=== PATIENT | female | born 1990 | race Hispanic/Latino ===

== ENCOUNTER 2021-09-07 07:40 | Emergency (ER) | payer BC, OTHER ==
[~2021-09-07] VITALS: Ht 160 cm; Wt 90.3 kg
[2021-09-07] MEDS ORDERED: DICYCLOMINE HCL 10 MG/5 ML ML PO SCH (08:00)
[2021-09-07] MEDS ORDERED: FAMOTIDINE 20MG VIAL IV SCH (08:00)
[2021-09-07] MEDS ORDERED: 0.9%NACL 1000ML 1,000 ML IV SCH (08:00)
[2021-09-07] MEDS ORDERED: ONDANSETRON 4MG INJ IVP SCH (08:00)
[2021-09-07] MEDS ORDERED: MAG/ALUM/SIMETH 30 ML UDCUP PO SCH (08:00)
[2021-09-07] MEDS ORDERED: LIDOCAINE HCL 2% VISCOUS 15 ML UDCUP PO SCH (08:00)
[2021-09-07] MEDS ORDERED: ONDANSETRON 4MG INJ ONE (08:04)
[2021-09-07] MEDS ORDERED: LIDOCAINE HCL 2% VISCOUS 15 ML UDCUP ONE (08:04)
[2021-09-07] MEDS ORDERED: MAG/ALUM/SIMETH 30 ML UDCUP ONE (08:04)
[2021-09-07] MEDS ORDERED: DICYCLOMINE HCL 10 MG/5 ML ML PO ONE (08:04)
[2021-09-07] MEDS ORDERED: FAMOTIDINE 20MG VIAL IV ONE (08:05)
[2021-09-07 08:17] LABS: BASOPHILS % (AUTO) 0.4 % (0.0-5.0); EOSINOPHILS % (AUTO) 0.3 % (0.0-8.0); HEMATOCRIT 42.4 % (36-48); LYMPHOCYTES % (AUTO) 21.3 % (21.0-51.0); MEAN CORPUSCULAR HEMOGLOBIN 28.3 pg (27.0-33.0); MEAN CORPUSCULAR HGB CONC 31.4 g/dL (32.0-36.0); MEAN CORPUSCULAR VOLUME 90.2 fL (79-99); MONOCYTES % (AUTO) 3.6 % (3.0-13.0); NEUTROPHILS % (AUTO) 73.9 % (40.0-77.0); PLATELET COUNT (AUTO) 401 K/uL (130-400); RED CELL DISTRIBUTION WIDTH 13.6 % (11.0-15.5); WHITE BLOOD COUNT (AUTO) 14.9 K/uL (4.8-10.8)
[2021-09-07 08:28] LABS: APPEARANCE,URINE CLEAR (CLEAR); BILIRUBIN,URINE NEGATIVE (NEGATIVE); COLOR,URINE YELLOW (YELLOW); GLUCOSE, URINE (UA) NEGATIVE (NEGATIVE); KETONES,URINE NEGATIVE (NEGATIVE); LEUKOCYTE ESTERASE ,URINE MODERATE (NEGATIVE); NITRATE,URINE NEGATIVE (NEGATIVE); OCCULT BLOOD,URINE NEGATIVE (NEGATIVE); PROTEIN,URINE NEGATIVE (NEGATIVE); UROBILINOGEN,URINE 0.2 mg/dL (0.2-1.0)
[2021-09-07 08:31] LABS: CREATININE 0.8 mg/dL (0.5-1.5); POTASSIUM 3.7 mmol/L (3.5-5.1)
[2021-09-07 08:35] LABS: ALBUMIN 3.6 g/dL (3.5-5.0); BILIRUBIN,TOTAL 0.4 mg/dL (0.2-1.0); TOTAL PROTEIN, SERUM 8.3 g/dL (6.0-8.3)
[2021-09-07 08:40] LABS: HCG,QUAL RESULT NEGATIVE (NEGATIVE)
[2021-09-07 09:00] LABS: BACTERIA,URINE Rare /HPF (None Seen); RBC,URINE 0-1 /HPF (0-1); SQUAMOUS EPITHELIAL CELL,UR Few /HPF (0-2)
[2021-09-07 09:44] VITALS: BP 113/72
[2021-09-07] MEDS ORDERED: CARAL PO (10:06)
[2021-09-07] MEDS ORDERED: PANT40TA PO (10:06)
== END 2021-09-07 10:26 | disposition home or self-care (01) ==
LOC: EDH 07:40
DX: R10.13 Epigastric pain (principal); K29.20 Alcoholic gastritis without bleeding; Z98.890 Other specified postprocedural states
CPT/HCPCS: 36415; 74176; 76705; 80053; 81001; 81025; 83690; 85025; 87088; 96361; 96374; 96375; 99284; J2405; J3490; J7030

== ENCOUNTER → 2022-05-24 | Outpatient (CLI) | payer BC, MEDICAID ==
[~2022-05-24] MED LIST: CARAL PO; PANT40TA PO
== END | disposition home or self-care (01) ==
LOC: RAH 10:38
PROVIDERS: ATTEND Internal Medicine
DX: N63.10 Unspecified lump in the right breast, unspecified quadrant (principal); N60.01 Solitary cyst of right breast
CPT/HCPCS: 76641

== ENCOUNTER → 2022-12-05 | Outpatient (CLI) | payer MEDICAID | END | disposition home or self-care (01) | LOC: RAH 08:24 | PROVIDERS: ATTEND Internal Medicine | DX: N63.10 Unspecified lump in the right breast, unspecified quadrant (principal) | CPT/HCPCS: 76641 ==